=== PATIENT | female | born 1955 | race Caucasian/White ===

== ENCOUNTER 2021-11-26 17:54 | Emergency (ER) ==
[~2021-11-26] VITALS: Ht 157.5 cm; Wt 67.1 kg
== END 2021-11-26 20:43 | disposition left against medical advice (07) ==
LOC: M ED 17:54
DX: Z53.29 Procedure and treatment not carried out because of patient's decision for other reasons (principal)

== ENCOUNTER 2021-12-02 12:48 | Emergency (ER) | payer MEDICARE, OTHER ==
[~2021-12-02] VITALS: Ht 157.5 cm; Wt 62.7 kg
[2021-12-02 12:49] VITALS: BP 132/67
== END 2021-12-02 16:13 | disposition home or self-care (01) ==
LOC: M ED 12:48
DX: M79.661 Pain in right lower leg (principal); Z88.5 Allergy status to narcotic agent